=== PATIENT | female | born 1985 | race Caucasian/White ===

== ENCOUNTER 2017-01-12 17:54 | Emergency (ER) | payer MEDICAID ==
[~2017-01-12] VITALS: Ht 157.5 cm; Wt 70.0 kg
[2017-01-12 17:57] VITALS: Ht 157.5 cm; Wt 70.0 kg
[2017-01-12 19:49] VITALS: BP 122/64; PULSE 61; RESP 20; TEMP 98.1
--- NOTE | 2017-01-12 20:33 | ERD ---
ER Documentation Chief Complaint Date/Time DATE: 01/12/17 TIME: 20:30 Chief Complaint HIT HEAD 1 1/2MOS, NOW HAS SCALP LUMP? HPI Patient is a 31-year-old female with no medical problems who presents with a lesion to her scalp. She said that she hit her head 2 months ago and since then she has had a growth from her right scalp. It is been getting bigger. It bleeds occasionally. She has had no treatment for this as of yet. She has not followed up with a doctor for this as of yet. ROS All systems reviewed and are negative except as per history of present illness. Allergies Allergies: Coded Allergies: No Known Allergy (Verified Allergy, Unknown, 12/05/09) PMhx/Soc History of Surgery: Yes ( X 2.) Anesthesia Reaction: No Hx Neurological Disorder: No Hx Respiratory Disorders: No Hx Psychiatric Problems: No Hx Miscellaneous Medical Probl: No Hx Alcohol Use: No Hx Substance Use: No Hx Tobacco Use: No Smoking Status: Never smoker FmHx Family History: No diabetes Physical Exam Vitals Vital Signs Date Time Temp Pulse Resp B/P Pulse Ox O2 Delivery O2 Flow Rate FiO2 01/12/17 19:49 98.1 61 20 122/64 99 01/12/17 17:57 97.2 74 20 128/72 99 Physical Exam Const: No acute distress Head: Patient has a pedunculated lesion measuring approximately 1.5 x 1.5 cm from the superior right scalp Eyes: Normal Conjunctiva ENT: Normal External Ears, Nose and Mouth. Neck: Full range of motion..~ No meningismus. Resp: Clear to auscultation bilaterally Cardio: Regular rate and rhythm, no murmurs Abd: Soft, non tender, non distended. Normal bowel sounds Skin: Pedunculated lesion to the superior right scalp as described above Back: No midline or flank tenderness Ext: No cyanosis, or edema Neur: Awake and alert Psych: Normal Mood and Affect Procedures/MDM Patient is a 31-year-old female who presents with a pedunculated lesion to the top of her scalp. This appears to be vascular and therefore I did not want to remove it in the emergency department. I do believe that she will need removal of this with the specimen sent to pathology as well to rule out carcinoma. I believe the best course of action would be to refer her to a general surgeon who could remove this lesion in total, and sent for pathology. I will give her information for Dr. Arrington who is the general surgeon on-call today. The patient can return for any worsening symptoms. She should follow-up within 24- 48 hours. Departure Diagnosis: Primary Impression: Scalp lesion Additional Impression: Swelling Condition: Fair Patient Instructions: Skin Ulcer, Simple Referrals: SHARONDA ARRINGTON M.D. [facility] () Usted se page hecho un examen mdico de control que le indica que no est en becca condicin que requiera tratamiento urgente en el Departamento de Emergencia. Un estudio ms profundo y el tratamiento de choudhury condicin pueden esperar sin ningn riesgo hasta que usted sea atendida/o en el consultorio de choudhury mdico o becca cl cass. Es responsabilidad suya arreglar ebcca randall para el seguimiento del rosa. MANEJO DE CONDICIONES NO URGENTES EN EL FUTURO 1) Si usted tiene un mdico de atencin primaria: Usted debera llamar a choudhury mdico de atencin primaria antes de venir al departamento de emergencia. Despus de las horas de consultorio, choudhury doctor o choudhury asociado/a est disponible por telfono. El mdico o enfermero de shawn en el servicio telefnico puede asesorarle por nohelia medio para atender el problema, o rosa contrario se puede programar becca randall. 2) Si usted no tiene un mdico de atencin primaria: Llame al mdico o condado institucions de referencia que aparece abajo braydon las horas de consultorio para hacer becca randall para que le vean. SI USTED NO PUEDE PAGAR PARA TESS UN MEDICO puede ir a: [facility] [address] [place] [address] [facility] [address] [place] [address] LOCATED WITHIN [facility] [address] [place] [address] PARA [facility] [address] [place] [address] Additional Instructions: Specialist:Usted tiene becca condicin mdica que requiere que bentley a un especialista dentro de los prximos 1-2 weber.POR FAVOR,CON CHOUDHURY SEGUIMIENTO DE PRIMARIA PHSICIAN refferal. SI USTED NO TIENE UN MDICO GENERAL Y / O USTED NO PUEDE PAGAR tess a un mdico,los siguientes puga RECURSOS sido suministrado a usted. ES CHOUDHURY RESPONSABILIDAD PARA SER VISTOS POR EL ESPECIALISTA: EDY SOOD MD Jan 12, 2017 20:33
== END 2017-01-12 19:51 | disposition home or self-care (01) ==
LOC: FTE 17:54
DX: L98.8 Other specified disorders of the skin and subcutaneous tissue (principal); R22.0 Localized swelling, mass and lump, head
CPT/HCPCS: 99282